=== PATIENT | female | born 1980 | race Two or more races ===

== ENCOUNTER 2021-08-08 18:46 | Emergency (ER) | payer OTHER ==
[~2021-08-08] VITALS: Ht 154.9 cm; Wt 99.8 kg
[2021-08-08] MEDS ORDERED: LOSARTAN POTASS50 MG PO (18:52)
[2021-08-08] MEDS ORDERED: TOPROL XL25 M1 PO (18:52)
== END 2021-08-09 00:10 | disposition home or self-care (01) ==
LOC: ER 18:46
DX: N39.0 Urinary tract infection, site not specified (principal); D25.9 Leiomyoma of uterus, unspecified